=== PATIENT | male | born 1950 | race Caucasian/White ===

== ENCOUNTER 2023-10-01 02:10 | Emergency (ER) | payer OTHER, SELFPAY ==
[2023-10-01 02:13] VITALS: BP 148/82; BMI 26.9
[2023-10-01 02:28] LABS: % Basophils 0.5 % (0-2); % Immature Granulocytes 0.6 % (0-0.5); % Monocytes 9.1 % (1.7-9.3); % Neutrophils 75.8 % (42.2-75.2); Absolute Basophils 0.1 10^3/uL (0-0.2); Absolute Eosinophils 0.2 10^3/uL (0-0.7); Absolute Immature Granulocytes 0.1 10^3/uL (0-0.05); Absolute Lymphocytes 1.4 10^3/uL (1.2-3.4); Absolute Monocytes 1.1 10^3/uL (0.1-0.6); Absolute Neutrophils 8.9 10^3/uL (1.4-6.5); Hematocrit 39.3 % (39.0-52.0); Hemoglobin 13.8 g/dL (13.0-18.0); Mean Corp Hgb Conc. 35.1 g/dL (33.0-37.0); Mean Corpuscular Volume 85.4 fL (80.0-94.0); Mean Platelet Volume 9.2 fL (7.4-10.4); Nucleated Red Blood Cells % 0 % (-); Platelet Count 266 10^3/uL (130-400); Red Cell Dist. Width 13.9 % (11.5-14.5); White Blood Cell Count 11.7 10^3/uL (4.8-10.8)
--- NOTE | 2023-10-01 02:34 | ED.GENMED ---
History of Present Illness
<ESTEFANIA Wilson - Last Filed: 10/01/23 05:06>
General
Chief Complaint: Abdominal Pain
Source: patient
Time Seen by Provider: 10/01/23 02:12
History of Present Illness
History of Present Illness:
Pt is a 72 y/o male with PMHx of prothrombin gene mutation, DVT, villous adenoma, IBS, and DM presenting with abdominal pain x3.5 hours. He states the pain started while laying in bed. He states it is located all across the upper abdomen. He states
it was a constant 9/10 that is now 6/10. He states he did eat more than usual tonight at a alliance party. Patient also states he is having chest tightness that started with the abdominal pain tonight. He states it feels like pressure across his chest that
does not radiate. He states it is occurring all the time. He states he is also experiencing SOB that also started with the abdominal pain. He states he was fatigued just trying to sit up in bed and he feels like it is difficult to get air in. He
also admits to right calf cramping when he was in bed that has not resolved. He also admits to a headache that started with the abdominal pain. He states it is a 5/10 in his temples. Patient states he drinks 5 ounces of 80 proof liquor nighty and
admits to occasional marijuana use. He denies any fever, chills, diaphoresis, back pain, vomiting, or edema.
Phy Exam
<Grady Mcnair [facility] - Last Filed: 10/01/23 05:06>
Physical Exam
Physical Exam:
GENERAL: Alert , uncomfortable, in mild distress
EYE: pupils equal and reactive
Throat: Airway intact, no exudates
NECK: Supple, no significant adenopathy.
CARDIAC: Regular rate and rhythm .
LUNGS: Clear breath sounds bilaterally, no acute respiratory distress, no wheezes/rales/rhonchi
ABDOMEN: Tenderness with palpation to the upper abdomen worse in the epigastric region. Soft, nondistended, no cvat
NEUROLOGICAL: Alert and oriented x3, following commands, no focal neuro deficits.
SKIN: Warm and dry, skin intact.
MUSCULOSKELETAL: No edema, well perfused. No calf tenderness. 2+ dorsalis pedis pulses b/l.
PSYCH: Normal and appropriate interaction.
Course
<Grady Mcnair [facility] - Last Filed: 10/01/23 05:06>
Orders/Labs/Results
Orders:
Orders
10/01/23 02:12
Electrocardiogram (*1) Urgent
Reason for Study: Abdominal Pain
EKG- Treatment ONCE
IV Insert/Care/Rem.- Treatment PRN
10/01/23 02:18
Complete Blood Count/With Diff Urgent
Comprehensive Metabolic Panel Urgent
Lipase Urgent
Troponin I Urgent
10/01/23 02:52
CT Pe/abd/pel W Urgent
Comment: incorrect order by attending 'could not find correct order'
Reason For Exam: cp (hx of clotting), abd pain
10/01/23 04:57
Electrocardiogram (*1) Urgent
Reason for Study: Chest Pain
EKG- Treatment ONCE
10/01/23 04:59
Troponin I Urgent
10/01/23 05:34
US Abdomen Complete/Upper Urgent
Comment:
Reason For Exam: gallstone
Abnormal Lab Results
10/01/23
02:18
WBC 11.7 H 10^3/uL
(4.8-10.8)
RBC 4.60 L 10^6/uL
(4.70-6.10)
Abs Immat Gran (auto) 0.1 H 10^3/uL
(0-0.05)
Absolute Neuts (auto) 8.9 H 10^3/uL
(1.4-6.5)
Absolute Monos (auto) 1.1 H 10^3/uL
(0.1-0.6)
Immature Gran % 0.6 H %
(0-0.5)
Neutrophils % 75.8 H %
(42.2-75.2)
Lymphocytes % 12.0 L %
(20.5-51.1)
BUN 24 H mg/dl
(9-20)
10/01/23 02:18
10/01/23 02:18
Vital Signs
Initial and Last Documented VS:
Initial Vital Signs
Temp Pulse Resp BP Pulse Ox
98.7 F 68 19 148/82 97
10/01/23 02:13 10/01/23 02:13 10/01/23 02:13 10/01/23 02:13 10/01/23 02:13
Last Documented Vital Signs
Temp Pulse Resp BP Pulse Ox
98.7 F 62 15 137/83 97
10/01/23 02:13 10/01/23 07:00 10/01/23 07:00 10/01/23 07:00 10/01/23 07:00
<Bismark Fong, - Last Filed: 10/01/23 07:08>
Orders/Labs/Results
Orders:
Orders
10/01/23 02:12
Electrocardiogram (*1) Urgent
Reason for Study: Abdominal Pain
EKG- Treatment ONCE
IV Insert/Care/Rem.- Treatment PRN
10/01/23 02:18
Complete Blood Count/With Diff Urgent
Comprehensive Metabolic Panel Urgent
Lipase Urgent
Troponin I Urgent
10/01/23 02:52
CT Pe/abd/pel W Urgent
Comment: incorrect order by attending 'could not find correct order'
Reason For Exam: cp (hx of clotting), abd pain
10/01/23 04:57
Electrocardiogram (*1) Urgent
Reason for Study: Chest Pain
EKG- Treatment ONCE
10/01/23 04:59
Troponin I Urgent
10/01/23 05:34
US Abdomen Complete/Upper Urgent
Comment:
Reason For Exam: gallstone
Abnormal Lab Results
10/01/23
02:18
WBC 11.7 H 10^3/uL
(4.8-10.8)
RBC 4.60 L 10^6/uL
(4.70-6.10)
Abs Immat Gran (auto) 0.1 H 10^3/uL
(0-0.05)
Absolute Neuts (auto) 8.9 H 10^3/uL
(1.4-6.5)
Absolute Monos (auto) 1.1 H 10^3/uL
(0.1-0.6)
Immature Gran % 0.6 H %
(0-0.5)
Neutrophils % 75.8 H %
(42.2-75.2)
Lymphocytes % 12.0 L %
(20.5-51.1)
BUN 24 H mg/dl
(9-20)
10/01/23 02:18
10/01/23 02:18
Vital Signs
Initial and Last Documented VS:
Initial Vital Signs
Temp Pulse Resp BP Pulse Ox
98.7 F 68 19 148/82 97
10/01/23 02:13 10/01/23 02:13 10/01/23 02:13 10/01/23 02:13 10/01/23 02:13
Last Documented Vital Signs
Temp Pulse Resp BP Pulse Ox
98.7 F 62 15 137/83 97
10/01/23 02:13 10/01/23 07:00 10/01/23 07:00 10/01/23 07:00 10/01/23 07:00
<ESTEFANIA Wilson Last Filed: 10/01/23 05:06>
MDM/Problems Addressed
Differential Diagnosis Includes:
PE, ND, pancreatitis
<ESTEFANIA Wilson - Last Filed: 10/01/23 05:06>
*Pulse Oximetry
Patient hypoxic: no
*EKG
Interpreted by ED Provider?: Yes
EKG Intrepretation Date: 10/01/23
EKG Intrepretation Time: 02:17
Interpretation: abnormal
Comparison EKG: no comparison EKG present
Heart Rate: 70
Rate: normal
Rhythm: sinus
[place]: normal axis
Interval: normal interval
QRS Pattern: right bundle branch block (Incomplete)
Ischemia: no ischemia
*Licensed Veterinary Technician Interpretation
Rate: Licensed Veterinary Technician- N/A
*Critical Care Note
Total Time (30-74mins, 75-104mins- exclusive of procedures): Not Applicable
<ESTEFANIA Wilson - Last Filed: 10/01/23 05:06>
Update Note
Update Note:
10/01/2023 0500am: Patient states his abdominal pain, chest pain, and SOB have all improved.
<Bismark Fong DO - Last Filed: 10/01/23 07:08>
Update Note
Update Note:
10/01/2023 0500am: Patient states his abdominal pain, chest pain, and SOB have all improved.
10/01/2023 0546 AM: Back in to see the patient. Discussed CAT scan findings. Patient is anxious to leave as he has a son's wedding today.
ED Attending Note
<ESTEFANIA Wilson - Last Filed: 10/01/23 05:06>
-
Portions of this chart may have been created with voice recognition software.� Occasional wrong word or��sound alike� substitutions may have occurred due to the inherent limitations of voice recognition software.
<Bismark Fong, DO - Last Filed: 10/01/23 07:08>
ED Attending Note
Patient seen and examined by attending physician: Yes
I performed the substantive portion of visit, reviewed & personally made and approve the management plan that is documented in note by myself or STARR.: Yes
ED Attending Note:
72-year-old male in town for his son's wedding presents with abdominal pain and substernal nonradiating chest pain that began approximately 11:30 PM last evening. Patient states that he is has nausea without vomiting. She is history of irritable
bowel syndrome. Patient also admits to drinking alcohol every evening. Patient has had 2 stents in the past. He also states that he has had multiple bowel surgeries. Patient states that he also developed right calf cramping. Patient has a
history of clotting disorder and is on a DOAC. Patient drinks alcohol daily and does report occasional marijuana use. Patient was seen in conjunction with the PA student. I have reviewed and agree with the history and treatment plan presented.
On my independent physical exam, patient is awake, alert, and oriented x3 minimal acute distress. Heart is regular rate and rhythm. Lungs are clear to auscultation bilaterally without wheezes rales or rhonchi present. Abdomen is generally tender
in the upper quadrants. Good bowel sounds x 4 quadrants.
EKG shows sinus rhythm rate 70 with normal intervals, normal axis. No evidence of acute ischemia present. There are inverted T waves in the high lateral leads. No old EKG available for comparison.
Discussed CT scan with patient and . At this point he wishes to be discharged home to go to his son's wedding. He will be staying approximately 15 minutes away from the hospital. I did discuss signs and symptoms of cholecystitis and
pancreatitis with him. He does understand that it is risky to be discharged. I feel that he has good understanding of the risks and he will return to the ER as needed. He understands that he can go to any Medical Center. I will give him the name
of the surgeon I spoke with who is on-call.
Discharge Plan
Departure
Patient Disposition: Home (Routine Discharge)
Date of Disposition: 10/01/23
Time of Disposition: 07:05
Patient with high blood pressure during this ER visit?: Yes
Discharge Problem:
Impacted gallstone of gallbladder
Instructions: Abdominal Pain, Clear Liquid Diet, Gallstones
Prescriptions:
No Action
venlafaxine 150 mg Capsule,Extended Release 24hr
150 mg PO DAILY
venlafaxine 37.5 mg Tablet
37.5 mg PO DAILY
hydroxyzine HCl 25 mg Tablet
25 mg PO HS
Linzess 145 mcg Capsule
145 mcg PO DAILY
Linzess 72 mcg Capsule
72 mcg PO DAILY
atorvastatin 40 mg Tablet
40 mg PO DAILY
alprazolam 0.5 mg Tablet
0.5 mg PO DAILY
pantoprazole 40 mg Tablet,Delayed Release (Dr/Ec)
40 mg PO DAILY
buspirone 10 mg Tablet
10 mg PO BID
metformin 500 mg Tablet Extended Release 24 Hr
500 mg PO BID
valsartan 40 mg Tablet
40 mg PO DAILY
Xarelto 20 mg Tablet
20 mg PO DAILY
Referrals:
NONE,* [Family Provider] -
Nikolai Anderson MD [Active] - Next open appointment
Activity Restrictions/Additional Instructions:
It was a pleasure meeting you and taking part in your care. We hope for your continued healing and wellness.
Please read discharge instructions in their entirety. However, they are for general education and may not describe your exact diagnosis at discharge. Information on your ER visit and medical conditions were discussed with you along with appropriate
follow up information...
If indicated, please take your medications as instructed and indicated on discharge paperwork.
Please schedule a follow up appointment as directed. Call to schedule an appointment
Please return to the emergency department with ANY change in, persisting, or worsening of symptoms. If any of your symptoms do not improve, or persist, or become more severe within 6-12 hours, please return to the emergency department for further
care.
Please return to the emergency department if you develop a headache, neck pain/stiffness, fever greater than 100.4F, chest pain, shortness of breath, persistent nausea, vomiting, slurred speech, difficulty walking, numbness/tingling, weakness, signs
of infection or any other symptoms that are worrisome to you.
If you have any questions or concerns please do not hesitate to call the Hospital at or E-mail me directly at [email or web address]
Interventions
Interventions:
*Risk Screen - Suicide Last Done: 10/01/23 02:13
*General Assessment Last Done: 10/01/23 02:13
*Neglect/Abuse Screening Last Done: 10/01/23 02:13
*ED COVID-19 Vaccine History Last Done: 10/01/23 02:13
SY-Tgreos-Fpozsiog[facility] Assessment Last Done: 10/01/23 02:21
Discharge Date and Time
Print Language: WELSH
[2023-10-01 02:51] LABS: ALT (SGPT) 34 U/L (0-50); AST (SGOT) 36 U/L (17-59); Alkaline Phosphatase 69 U/L (38-126); Blood Urea Nitrogen 24 mg/dl (9-20); Calcium 9.9 mg/dl (8.4-10.2); Carbon Dioxide 25 mmol/L (22-30); Chloride 101 mmol/L (98-107); Estimated Creatinine Clearance 70 ml/min; Glucose 86 mg/dl (70-99); Lipase 114 U/L (23-300); Potassium 4.6 mmol/L (3.5-5.1); Sodium 137 mmol/L (135-145); Total Protein 7.7 g/dl (6.3-8.2); eGFR > 60.00
[2023-10-01 03:00] VITALS: BP 133/76
[2023-10-01 04:00] VITALS: BP 132/76
[2023-10-01 05:03] VITALS: BP 139/83
[2023-10-01 05:41] LABS: Troponin I < 0.012 ng/ml
[2023-10-01 06:38] VITALS: BP 131/72
[2023-10-01 07:00] VITALS: BP 137/83
== END 2023-10-01 07:31 | disposition home or self-care (01) ==
LOC: EMR 02:10
PROVIDERS: EMERGENCY PHYSICIAN Student in an Organized Health Care Education/Training Program
DX: K80.20 Calculus of gallbladder without cholecystitis without obstruction (principal); R03.0 Elevated blood-pressure reading, without diagnosis of hypertension
CPT/HCPCS: 99285; 71275; 74177; 76700; 80053; 83690; 84484; 85025; 93005; Q9967

== ENCOUNTER 2023-10-02 02:26 | Inpatient (IN) | payer OTHER, SELFPAY ==
[2023-10-02 00:57] VITALS: BP 125/80
[2023-10-02 01:10] VITALS: BMI 25.9
--- NOTE | 2023-10-02 01:28 | ED.GENMED ---
History of Present Illness
General
Chief Complaint: Abdominal Pain
Time Seen by Provider: 10/02/23 01:04
History of Present Illness
History of Present Illness:
Patient is a 72-year-old male with history of hypertension, hyperlipidemia, IBS, prior colorectal surgery for cancer and prior ileostomy presented to the emergency department abdominal pain. Patient states that he was seen here yesterday after he
has significant right upper quadrant pain. He was found to have a large stone in the gallbladder neck. Unfortunately his son was getting so he had to leave. He is back here as the plan was for surgical removal. He is having pain. He was
able to tolerate some p.o. though significant pain after eating candy. No fevers or chills. No vomiting. No diarrhea.
Phy Exam
Physical Exam
Physical Exam:
GENERAL: in no acute distress
HEENT: normocephalic, extraocular movements intact, moist oral mucosa
NECK: normal inspection
RESPIRATORY: no respiratory distress, clear to auscultation bilaterally
CARDIOVASCULAR: regular rate and rhythm
ABDOMEN/: soft, non-distended, right upper quadrant tenderness to palpation no rebound or guarding
EXTREMITIES: non-tender, no edema/swelling
NEUROLOGIC: awake and alert, moves all extremities
SKIN: warm
Course
Orders/Labs/Results
Orders:
Orders
10/02/23 01:26
Complete Blood Count/With Diff Urgent
Comprehensive Metabolic Panel Urgent
Vital Signs
Initial and Last Documented VS:
Initial Vital Signs
Temp Pulse Resp BP Pulse Ox
98.0 F 63 16 125/80 95
10/02/23 00:57 10/02/23 00:57 10/02/23 00:57 10/02/23 00:57 10/02/23 00:57
Last Documented Vital Signs
Temp Pulse Resp BP Pulse Ox
98.0 F 63 16 125/80 95
10/02/23 00:57 10/02/23 00:57 10/02/23 00:57 10/02/23 00:57 10/02/23 00:57
MDM/Problems Addressed
Differential Diagnosis Includes:
Patient is a 72-year-old man with prior history of IBS, hypertension, hyperlipidemia, prior surgeries presenting to the emergency department with abdominal pain in the setting of a known gallbladder stone in the neck. Vital signs are unremarkable
and exam does show right upper quadrant tenderness. Likely pain from the known stone. He does not appear to be jaundice or high fevers so less likely be cholangitis. Discussed with on-call surgery who recommended medicine admission. Blood work
pending. No additional need for repeat ultrasound. Discussed with hospitalist who accepted patient for admission
*Critical Care Note
Total Time (30-74mins, 75-104mins- exclusive of procedures): Not Applicable
ED Attending Note
-
Portions of this chart may have been created with voice recognition software.� Occasional wrong word or��sound alike� substitutions may have occurred due to the inherent limitations of voice recognition software.
Discharge Plan
Departure
Patient Disposition: Admit
Date of Disposition: 10/02/23
Time of Disposition: 01:32
Presentation/result/management discussed w/ accepting MD/DO: Hospitalist
Discharge Problem:
Gallbladder calculus
Prescriptions:
No Action
venlafaxine 150 mg Capsule,Extended Release 24hr
150 mg PO DAILY
Patient Comments:
take with 37.5mg
venlafaxine 37.5 mg Tablet
37.5 mg PO DAILY
Patient Comments:
take with 150mg
hydroxyzine HCl 25 mg Tablet
25 mg PO DAILYPRN PRN (Reason: allergies)
Linzess 145 mcg Capsule
145 mcg PO DAILYPRN PRN (Reason: constipation)
Linzess 72 mcg Capsule
72 mcg PO DAILYPRN PRN (Reason: constipation)
atorvastatin 40 mg Tablet
40 mg PO DAILY
alprazolam 0.5 mg Tablet
0.5 mg PO TIDPRN PRN (Reason: anxiety)
pantoprazole 40 mg Tablet,Delayed Release (Dr/Ec)
40 mg PO DAILY
buspirone 10 mg Tablet
10 mg PO BID
valsartan 40 mg Tablet
40 mg PO DAILY
Xarelto 20 mg Tablet
20 mg PO DAILY
metformin 1,000 mg Tablet
1,000 mg PO BID
simethicone [Gas-X Extra Strength] 125 mg Capsule
125 mg PO BIDPRN PRN (Reason: gas)
IBgard 90 mg Capsule,Delayed,Extend.Release
180 mg PO BID
Interventions
Interventions:
*Risk Screen - Suicide Last Done: 10/02/23 00:57
*General Assessment Last Done: 10/02/23 01:10
*Neglect/Abuse Screening Last Done: 10/02/23 00:57
*ED COVID-19 Vaccine History Last Done: 10/02/23 00:57
Discharge Date and Time
Print Language: TAJIK
[2023-10-02 01:45] LABS: % Basophils 0.3 % (0-2); % Eosinophils 2.2 % (0-6); % Immature Granulocytes 0.3 % (0-0.5); % Neutrophils 51.2 % (42.2-75.2); Absolute Eosinophils 0.2 10^3/uL (0-0.7); Absolute Lymphocytes 2.3 10^3/uL (1.2-3.4); Absolute Monocytes 0.9 10^3/uL (0.1-0.6); Absolute Neutrophils 3.5 10^3/uL (1.4-6.5); Hematocrit 33.3 % (39.0-52.0); Hemoglobin 11.6 g/dL (13.0-18.0); Mean Corp Hgb Conc. 34.8 g/dL (33.0-37.0); Mean Corpuscular Hgb 29.6 pg (27.0-31.0); Mean Corpuscular Volume 84.9 fL (80.0-94.0); Mean Platelet Volume 9.2 fL (7.4-10.4); Nucleated Red Blood Cells % 0 % (-); Platelet Count 230 10^3/uL (130-400); Red Blood Cell Count 3.92 10^6/uL (4.70-6.10); Red Cell Dist. Width 14.1 % (11.5-14.5); White Blood Cell Count 6.9 10^3/uL (4.8-10.8)
--- NOTE | 2023-10-02 01:57 | HPS.HSE ---
Family Physician
-
Family Physician: INTERVIEWE UNKNOWN - PT NOT
Chief Complaint
-
abdominal pain
History of Present Illness
72M Diabetic , HX HTN, IBS, prior colorectal surgery for cancer and prior ileostomy was seen at ER yesterday withsignificant right upper quadrant pain [place] [facility] [place] Refused admission due to Pending Son's weeding.
Retuned to ER tonight with significant right upper quadrant pain.
ROS
- tolerate some p.o. though significant pain after eating candy.
- no fevers or chills. No vomiting. No diarrhea.
Medical History
Past Medical History
Past Medical History: Reports HTN, Hypercholesterolemia, NIDDM and Psychiatric (depression and anxiety )
Past Surgical History: Reports Other
Social History
Tobacco: Non-smoker
Alcohol: None
Drug: None
Family History
Family History: Not pertinent
Allergies / Home Medications
Allergies reflects when Allergies were last updated in [employer].
Home Medications with original date entered in [employer]
Allergy/Medication List:
Allergies
Allergy/AdvReac Type Severity Reaction Status Date / Time
No Known Allergies Allergy Unverified 10/02/23 00:57
Home Medications
alprazolam 0.5 mg tablet 0.5 mg PO TIDPRN PRN anxiety 10/01/23
atorvastatin 40 mg tablet 40 mg PO DAILY 10/01/23
buspirone 10 mg tablet 10 mg PO BID 10/01/23
hydroxyzine HCl 25 mg tablet 25 mg PO DAILYPRN PRN allergies 10/01/23
linaclotide 145 mcg capsule (Linzess) 145 mcg PO DAILYPRN PRN constipation 10/01/23
linaclotide 72 mcg capsule (Linzess) 72 mcg PO DAILYPRN PRN constipation 10/01/23
pantoprazole 40 mg tablet,delayed release 40 mg PO DAILY 10/01/23
rivaroxaban 20 mg tablet (Xarelto) 20 mg PO DAILY 10/01/23
valsartan 40 mg tablet 40 mg PO DAILY 10/01/23
venlafaxine 150 mg capsule,extended release 24 hr 150 mg PO DAILY 10/01/23
venlafaxine 37.5 mg tablet 37.5 mg PO DAILY 10/01/23
metformin 1,000 mg tablet 1,000 mg PO BID 10/02/23
peppermint oil 90 mg capsule,delayed,extended release (IBgard) 180 mg PO BID 10/02/23
simethicone 125 mg capsule (Gas-X Extra Strength) 125 mg PO BIDPRN PRN gas 10/02/23
Review of Systems
-
Constitutional: Reports No Symptoms
EENT: Reports No Symptoms
Respiratory: Reports No Symptoms
Cardiac: Reports No Symptoms
Abdomen/GI: Reports Abdominal Pain
: Reports No Symptoms
Musculoskeletal: Reports No Symptoms
Skin: Reports No Symptoms
Neurological: Reports No Symptoms
Endocrine: Reports No Symptoms
Hematologic/Lymphatic: Reports No Symptoms
Psych: Reports No Symptoms
Physical Exam
Vital Signs
Vital Signs
Temp Pulse Resp BP Pulse Ox
98.0 F 63 16 125/80 95
10/02/23 00:57 10/02/23 00:57 10/02/23 00:57 10/02/23 00:57 10/02/23 00:57
Physical Exam
General: Well Developed, Well Nourished and No Apparent Distress
HEENT: NormoCephalic, Moist mucous membranes and Atraumatic
Respiratory: Clear
Cardiac: S1/S2 and Regular Rhythm; No Murmur or Rub
GI: Soft, Non Distended, Normal Bowel Sounds and Tender ( right upper quadrant tenderness to palpation); No Organomegaly
Rectal: Deferred by Provider
Musculoskeletal: No Clubbing, No Cyanosis and No Edema
Skin: No Rash
Neuro: Nonfocal/grossly intact
Psych: Calm
Laboratory Results
-
10/02/23 01:35
Data Reviewed
-
CT Scan: Report Reviewed by me
Ultrasound: Report Reviewed by me
Lab Data: Labs Reviewed by me
Old Records: Reviewed
Impression/Plan
-
Reviewed VS: Afebrile and unremarkable
Data
WCC 6.9 was 11.7 on 10/01
Hgb 11.6
Cr 1.0
10/01/23 US Abdomen Complete/Upper
1. 1.2 cm IMPACTED GALLSTONE in the neck of the gallbladder.
2. No sonographic evidence for acute cholecystitis or biliary obstruction.
3. Mild to moderate diffuse hepatic steatosis.
4. Mild chronic bilateral renal disease.
10/01/23 CT Pe/abd/pel W
1. Limited evaluation of the chest secondary to respiratory motion artifact. Within these limits, no gross evidence for pulmonary embolism. No focal airspace disease. Small amount of scarring/atelectasis within both posterior upper lobes.
2. Patulous esophagus with small fluid-filled hiatal hernia suggestive of reflux.
3. Moderate to large amount of flow within the proximal mid colon with several air-fluid levels suggestive of acute or ulna/gastroenteritis.
4. Cholelithiasis.
5. Additional findings above.
NO PRIOR hospitalist admission:
ASSESSMENT & PLAN
Biliary colic 2/2 1.2 cm IMPACTED GALLSTONE in the neck of the gallbladder.
No sonographic evidence for acute cholecystitis or biliary obstruction asof 09/30
nl LFTs on 09/30
- No nausea and vomiting
- Normalized WCC today
- Hold Xarelto - last dose was 09/30 around 8am
- NPO except Meds and IVF
- PRN analgesia
- Hold off ABx for now
- GS consulted
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
- Hold Xarelto - last dose was 09/30 around 8am
DMT2
- hold metformin
- add ISS low
Essential HTN
- hold Valsartan
HLD
- Hold Statin
Depression and Anxiety
- cont all OP Meds
DVT Px: SCD
Code: Full
IP MS
[2023-10-02 02:01] LABS: ALT (SGPT) 25 U/L (0-50); AST (SGOT) 28 U/L (17-59); Albumin 4.1 g/dl (3.5-5.0); Alkaline Phosphatase 55 U/L (38-126); Blood Urea Nitrogen 26 mg/dl (9-20); Calcium 9.3 mg/dl (8.4-10.2); Carbon Dioxide 23 mmol/L (22-30); Chloride 106 mmol/L (98-107); Estimated Creatinine Clearance 64 ml/min; Glucose 118 mg/dl (70-99); Potassium 4.2 mmol/L (3.5-5.1); Sodium 135 mmol/L (135-145); Total Bilirubin 1.3 mg/dl (0.2-1.3); Total Protein 6.6 g/dl (6.3-8.2); eGFR > 60.00
[2023-10-02 02:55] VITALS: BP 118/71
[2023-10-02 03:28] VITALS: BP 130/58; BMI 25.3
[2023-10-02] MEDS: NSS 1000 IV ×2 (03:47→15:58)
[2023-10-02] MEDS: ANESTHETIC LOZENGE 1 LOZENGE PO (03:59)
[2023-10-02 06:00] VITALS: BMI 25.3
[2023-10-02 06:14] LABS: Glucose - Point of Care 124 mg/dl (70-99)
--- NOTE | 2023-10-02 07:32 | W.PN.HOSP.TC ---
Addendum entered and electronically signed by Gibson Dowd MD 10/02/23 18:17:
Start IV heparin drip for hypercoagulable state.
Original Note:
Today's Communication/Plan
-
See bold
Assessment / Plan
Assessment / Plan
HPI: 72-year-old male with history of hypertension, hyperlipidemia, IBS, prior colorectal surgery for cancer and prior ileostomy presented to the emergency department abdominal pain. Patient states that he was seen here yesterday after he has
significant right upper quadrant pain. He was found to have a large stone in the gallbladder neck. Unfortunately his son was getting so he had to leave. He is back here as the plan was for surgical removal. He is having pain. He was
able to tolerate some p.o. though significant pain after eating candy. No fevers or chills. No vomiting. No diarrhea.
#Biliary colic
#Choledocholithiasis
Abdominal ultrasound shows 1.2 cm impacted gallstone in the neck of the gallbladder
General Surgery consulted
Continue n.p.o., IV fluids, pain meds
Hold Xarelto, last dose 09/30
#History of clotting disorders complicated by CVA
Hold Xarelto, continue statin
#Type 2 diabetes
Hold metformin, continue sliding scale insulin
#Allergic rhinitis
Continue antihistamine
#Benign essential hypertension
Hold valsartan for now, monitor blood pressure
#Allergic rhinitis
Zyrtec, hydroxyzine
#Anxiety/depression
Continue venlafaxine, Xanax as needed
DVT prophylaxis�subcu Lovenox
Full code
Physical Exam
General: No acute distress
HEENT: Normocephalic, Atraumatic, EOMI, MMM
Respiratory: Clear to Auscultation bilaterally
Cardiac: Normal S1/S2, Regular Rate and Rhythm
GI: Soft, tenderness in right upper quadrant and epigastric, Nondistended, Normal Bowel Sounds
Extremities: No Clubbing, Cyanosis, or Edema
Neuro: Nonfocal/Grossly Intact
Psych: Calm, Cooperative
Derm: No Visible lesions
Anticipated Discharge: > 48 hours
Subjective/Interval History
-
Date of Service: October 02, 2023
Objective Data
-
Labs:
Laboratory Results
10/02/23 10/02/23
01:35 06:28
WBC 6.9
Hgb 11.6 L
Hct 33.3 L
Plt Count 230
PT Pending
INR Pending
Sodium 135
Potassium 4.2
Chloride 106
Carbon Dioxide 23
BUN 26 H
Creatinine 1.1
Glucose 118 H
Calcium 9.3
Total Bilirubin 1.3
AST 28
ALT 25
Alkaline Phosphatase 55
Vital Signs:
Vital Signs
Temp Pulse Resp BP Pulse Ox
97.5 F 65 17 130/58 94
10/02/23 03:28 10/02/23 03:28 10/02/23 03:28 10/02/23 03:28 10/02/23 03:28
[2023-10-02 07:33] VITALS: BP 141/74
[2023-10-02 07:54] LABS: Lipase 57 U/L (23-300)
[2023-10-02] MEDS: EFFEXOR 37.5 MG PO (08:09)
[2023-10-02] MEDS: BUSPAR 10 MG PO ×2 (08:09→20:19)
[2023-10-02] MEDS: EFFEXOR XR 150 MG PO (08:10)
[2023-10-02 09:15] LABS: Glycohemoglobin (HgbA1c) 7.1 % (4.0-5.6)
[2023-10-02 09:32] LABS: PT 15.1 Sec (11.4-14.6)
[2023-10-02 12:02] LABS: Glucose - Point of Care 82 mg/dl (70-99)
[2023-10-02] MEDS: XANAX 0.5 MG PO ×2 (13:32→20:19)
[2023-10-02] MEDS: ATARAX 25 MG PO (14:23)
[2023-10-02] MEDS: ZYRTEC 10 MG PO (14:24)
[2023-10-02 15:21] VITALS: BP 145/75
--- NOTE | 2023-10-02 15:44 | CM ---
Met with pt and his a bedside
Pt reports he lives with his in a 2 story home - 2 steps to enter, 15 steps to 2nd fl
Independent, driving, active
DME - glucometer
SNF - denies past hx
HH - in past - unsure of agency
Has ride home at d/c
PCP - Dr Hall
Pharm - [facility]
CM will follow for d/c needs
Plan - anticipate home no needs
[2023-10-02] MEDS: LIPITOR 40 MG PO (15:58)
[2023-10-02] MEDS: PROTONIX 40 MG PO (15:58)
--- NOTE | 2023-10-02 16:46 | CON.GS ---
Medical History
-
Chief Complaint: abdominal pain
History of Present Illness:
Mr. Story is a 72 yo male with a history of colorectal cancer with prior ileostomy and subsequent reversal in 2009, incisional hernia repair with mesh at ostomy site and clotting disorder with prior CVA/PE/DVT now on Xarelto chronically LD on
09/30 presenting with recurrent RUQ pain. He does note chronic RLQ pain at prior surgical site which is stable. He initially presented through the ED on 09/30 with US imaging noting a stone impacted at the gallbladder neck. His son was getting
later that day and he opted to be discharged and follow up as an outpatient. He notes that he did well at the wedding but pain returned later that evening and he presented again through the ED for evaluation. He has noted tenderness to the RUQ but
pain is not severe. He denies nausea or vomiting. He has been passing flatus.
Past Medical History
Past Medical History: CVA and Other (Clotting disorder with h/o PE/DVT/CVA)
Past Surgical History: Bowel Resection (Hemicolectomy with temporary ileostomy which was subsequently taken down 2009) and Hernia Repair (Incisional hernia repair with mesh at prior ostomy site )
Social History
Tobacco: Non-Smoker
Personal:
Living: With Family
Family History
Family History: Reviewed & Not Pertinent
Allergies / Home Medications
Allergy/AdvReac Type Severity Reaction Status Date / Time
No Known Allergies Allergy Unverified 10/02/23 00:57
�Medication �Instructions �Recorded �Confirmed �Type
alprazolam 0.5 mg tablet 0.5 mg PO TIDPRN PRN anxiety 10/01/23 10/02/23 History
atorvastatin 40 mg tablet 40 mg PO DAILY 10/01/23 10/02/23 History
buspirone 10 mg tablet 10 mg PO BID 10/01/23 10/02/23 History
hydroxyzine HCl 25 mg tablet 25 mg PO DAILYPRN PRN allergies 10/01/23 10/02/23 History
linaclotide 145 mcg capsule 145 mcg PO DAILYPRN PRN 10/01/23 10/02/23 History
(Linzess) constipation
linaclotide 72 mcg capsule 72 mcg PO DAILYPRN PRN constipation 10/01/23 10/02/23 History
(Linzess)
pantoprazole 40 mg tablet,delayed 40 mg PO DAILY 10/01/23 10/02/23 History
release
rivaroxaban 20 mg tablet (Xarelto) 20 mg PO DAILY 10/01/23 10/02/23 History
valsartan 40 mg tablet 40 mg PO DAILY 10/01/23 10/02/23 History
venlafaxine 150 mg 150 mg PO DAILY 10/01/23 10/02/23 History
capsule,extended release 24 hr
venlafaxine 37.5 mg tablet 37.5 mg PO DAILY 10/01/23 10/02/23 History
metformin 1,000 mg tablet 1,000 mg PO BID 10/02/23 10/02/23 History
peppermint oil 90 mg 180 mg PO BID 10/02/23 10/02/23 History
capsule,delayed,extended release
(IBgard)
simethicone 125 mg capsule (Gas-X 125 mg PO BIDPRN PRN gas 10/02/23 10/02/23 History
Extra Strength)
Review of Systems
-
History Source: Patient and Family
All other systems: Negative unless noted
A 10 point review of systems was completed, and was negative except as per HPI.
Physical Exam
Vital Signs
Temp Pulse Resp BP Pulse Ox
98 F 57 16 145/75 98
10/02/23 15:21 10/02/23 15:21 10/02/23 15:21 10/02/23 15:21 10/02/23 15:21
10/01/23 10/02/23 10/03/23
06:59 06:59 06:59
Actual Weight 80.002 kg
Body Mass Index (BMI) 25.3
Lab Results
10/02/23 01:35
10/02/23 01:35
WBC 6.9 10^3/uL (4.8-10.8) 10/02/23 01:35
Hgb 11.6 g/dL (13.0-18.0) L 10/02/23 01:35
Hct 33.3 % (39.0-52.0) L 10/02/23 01:35
Plt Count 230 10^3/uL (130-400) 10/02/23 01:35
Abs Immat Gran (auto) 0.0 10^3/uL (0-0.05) 10/02/23 01:35
Neutrophils % 51.2 % (42.2-75.2) 10/02/23 01:35
Physical Exam
General: Well Developed and Well Nourished
HEENT: Moist Mucous Membranes
Respiratory: Non Labored Respirations
GI: Soft, Non Distended and Tender (RUQ)
Skin: Warm and Dry
Neuro: Awake, Alert and AO x 3
Psych: Calm
Assessment / Plan
-
72 yo diabetic male on Xarelto for clotting disorder with prior CVA, PE and DVT (LD 8) with recurrent RUQ pain with US imaging demonstrating a stone impacted at the gallbladder neck although without pericholecystic stranding. He initially had
mild leukocytosis which has resolved. No N/V. AFVSS. LFT's OK. Biliary colic with suspected acute cholecystitis.
Discussed options with patient in depth including surgery and timing. Will plan cholecystostomy tube placement tomorrow and subsequent follow up with surgery for future cholecystectomy closer to his home in [facility].
--Hold Xarelto for procedure
--Consult IR for perc naomie drain
--OK for clear liquids tonight, NPO after MN
--Start IV zosyn empirically
--Trend labs/exams
[2023-10-02] MEDS: ZOSYN 50 IV (17:06)
[2023-10-02] MEDS: MIRALAX 17 GRAMS PO (17:13)
[2023-10-02 17:58] LABS: Glucose - Point of Care 159 mg/dl (70-99)
[2023-10-02] MEDS: HEPARIN 25000 UNITS/250 ML IV (19:16)
[2023-10-02 21:20] LABS: APTT 26.4 Sec (23.4-35.0)
[2023-10-02 23:59] VITALS: BP 130/65
[2023-10-03] MEDS: ZOSYN 50 IV ×5 (00:08→23:46)
[2023-10-03] MEDS: XANAX 0.5 MG PO ×5 (00:20→21:41)
[2023-10-03 00:42] LABS: Glucose - Point of Care 96 mg/dl (70-99)
[2023-10-03 04:41] LABS: Hemoglobin 11.2 g/dL (13.0-18.0); Mean Corp Hgb Conc. 33.9 g/dL (33.0-37.0); Mean Corpuscular Hgb 30.6 pg (27.0-31.0); Mean Corpuscular Volume 90.2 fL (80.0-94.0); Mean Platelet Volume 9.2 fL (7.4-10.4); Platelet Count 181 10^3/uL (130-400); Red Blood Cell Count 3.66 10^6/uL (4.70-6.10); Red Cell Dist. Width 13.9 % (11.5-14.5); White Blood Cell Count 5.4 10^3/uL (4.8-10.8)
[2023-10-03 04:50] LABS: APTT 28.2 Sec (23.4-35.0)
[2023-10-03 05:10] LABS: ALT (SGPT) 24 U/L (0-50); AST (SGOT) 25 U/L (17-59); Alkaline Phosphatase 45 U/L (38-126); Blood Urea Nitrogen 15 mg/dl (9-20); Calcium 7.4 mg/dl (8.4-10.2); Carbon Dioxide 20 mmol/L (22-30); Chloride 112 mmol/L (98-107); Estimated Creatinine Clearance 78 ml/min; Glucose 88 mg/dl (70-99); Potassium 3.7 mmol/L (3.5-5.1); Sodium 138 mmol/L (135-145); Total Bilirubin 1.6 mg/dl (0.2-1.3); Total Protein 5.2 g/dl (6.3-8.2); eGFR > 60.00
[2023-10-03] MEDS: NSS 1000 IV ×2 (05:24→20:23)
[2023-10-03 06:00] VITALS: BMI 24.9
[2023-10-03 06:23] LABS: Glucose - Point of Care 102 mg/dl (70-99)
[2023-10-03 07:39] VITALS: BP 141/82
[2023-10-03 07:59] LABS: % Basophils 0.6 % (0-2); % Eosinophils 3.5 % (0-6); % Immature Granulocytes 0.4 % (0-0.5); % Lymphocytes 33.5 % (20.5-51.1); % Monocytes 11.7 % (1.7-9.3); % Neutrophils 50.3 % (42.2-75.2); Absolute Eosinophils 0.2 10^3/uL (0-0.7); Absolute Lymphocytes 1.8 10^3/uL (1.2-3.4); Absolute Monocytes 0.6 10^3/uL (0.1-0.6); Absolute Neutrophils 2.7 10^3/uL (1.4-6.5); Hemoglobin 11.8 g/dL (13.0-18.0); Mean Corp Hgb Conc. 34.7 g/dL (33.0-37.0); Mean Corpuscular Hgb 30.9 pg (27.0-31.0); Mean Platelet Volume 9.8 fL (7.4-10.4); Nucleated Red Blood Cells % 0 % (-); Platelet Count 202 10^3/uL (130-400); Red Blood Cell Count 3.82 10^6/uL (4.70-6.10); Red Cell Dist. Width 13.9 % (11.5-14.5); White Blood Cell Count 5.4 10^3/uL (4.8-10.8)
[2023-10-03 08:10] LABS: APTT 26.8 Sec (23.4-35.0)
--- NOTE | 2023-10-03 08:21 | W.PN.HOSP.TC ---
Addendum entered and electronically signed by Gibson Dowd MD 10/03/23 14:43:
#Anxiety/depression
Patient is upset about being in the hospital, and is asking for an increase in his Xanax.
He is on buspirone 10 mg twice a day, venlafaxine 187.5 milligrams daily, and Xanax 0.5 mg 3 times daily as needed.
Due to his age of [age] years old, I am hesitant to increase his Xanax.
Will consult psychiatry for their recommendations.
Original Note:
Today's Communication/Plan
-
For tentative cholecystectomy tomorrow
Assessment / Plan
Assessment / Plan
HPI: 72-year-old male with history of hypertension, hyperlipidemia, IBS, prior colorectal surgery for cancer and prior ileostomy presented to the emergency department abdominal pain. Patient states that he was seen here yesterday after he has
significant right upper quadrant pain. He was found to have a large stone in the gallbladder neck. Unfortunately his son was getting so he had to leave. He is back here as the plan was for surgical removal. He is having pain. He was
able to tolerate some p.o. though significant pain after eating candy. No fevers or chills. No vomiting. No diarrhea.
#Biliary colic with suspected acute cholecystitis
#Choledocholithiasis
Abdominal ultrasound shows 1.2 cm impacted gallstone in the neck of the gallbladder
Hold Xarelto, last dose 09/30
Appreciate general surgery input, patient initially opted for biliary drain so he can be discharged from the hospital
Now he wants to have surgery inpatient
Continue IV Zosyn, for possible lap naomie tomorrow
Need to hold heparin drip 6 hours preop
#History of clotting disorders complicated by CVA
Hold Xarelto, continue heparin drip, statin
#Type 2 diabetes
A1C 7.1
Hold metformin, continue sliding scale insulin
#Allergic rhinitis
Continue antihistamine
#Benign essential hypertension
Hold valsartan for now, monitor blood pressure
#Allergic rhinitis
Zyrtec, hydroxyzine
#Anxiety/depression
Continue venlafaxine, Xanax as needed
DVT prophylaxis�heparin drip
Full code
Total time spent to see the patient on the floor, examine the patient, review data and lab results, discuss treatment plan with patient, nursing staff around 51 minutes.
Physical Exam
General: No acute distress
HEENT: Normocephalic, Atraumatic, EOMI, MMM
Respiratory: Clear to Auscultation bilaterally
Cardiac: Normal S1/S2, Regular Rate and Rhythm
GI: Soft, tenderness in right upper quadrant and epigastric, Nondistended, Normal Bowel Sounds
Extremities: No Clubbing, Cyanosis, or Edema
Neuro: Nonfocal/Grossly Intact
Psych: Calm, Cooperative
Derm: No Visible lesions
Anticipated Discharge: 24 - 48 hours
Subjective/Interval History
-
Date of Service: October 02, 2023
Abdominal pain resolved. No fever, no vomiting.
Objective Data
-
Labs:
Laboratory Results
10/02/23
06:28
PT 15.1 H
INR 1.20
Vital Signs:
Vital Signs
Temp Pulse Resp BP Pulse Ox
98 F 57 16 145/75 98
10/02/23 15:21 10/02/23 15:21 10/02/23 15:21 10/02/23 15:21 10/02/23 15:21
[2023-10-03 08:23] LABS: Blood Urea Nitrogen 17 mg/dl (9-20); Calcium 8.7 mg/dl (8.4-10.2); Carbon Dioxide 23 mmol/L (22-30); Chloride 107 mmol/L (98-107); Estimated Creatinine Clearance 70 ml/min; Glucose 98 mg/dl (70-99); Potassium 4.2 mmol/L (3.5-5.1); Sodium 136 mmol/L (135-145); eGFR > 60.00
[2023-10-03] MEDS: EFFEXOR XR 150 MG PO (08:40)
[2023-10-03] MEDS: BUSPAR 10 MG PO ×2 (08:40→20:24)
[2023-10-03] MEDS: LIPITOR 40 MG PO (08:41)
[2023-10-03] MEDS: ZYRTEC 10 MG PO (08:41)
[2023-10-03] MEDS: EFFEXOR 37.5 MG PO (08:41)
[2023-10-03] MEDS: PROTONIX 40 MG PO (08:41)
--- NOTE | 2023-10-03 09:04 | PTCARENOTE ---
at 0904, heparin ordered to be held in preparation for biliary drain placement, will continue to monitor.
--- NOTE | 2023-10-03 10:31 | W.PN.GS2 ---
Today's Communication / Plan
-
Lap naomie Wednesday
Assessment / Plan
-
72 yo diabetic male on Xarelto for clotting disorder with prior CVA, PE and DVT (LD 09/30) with recurrent RUQ pain with US imaging demonstrating a stone impacted at the gallbladder neck although without pericholecystic stranding. He initially had
mild leukocytosis which has resolved. No N/V. AFVSS. LFT's OK initially but now trending up. Biliary colic with suspected acute cholecystitis.
Reviewed plan of care and options with patient. He is now thinking he would like surgery while inpatient and not drain placement. Discussed with hospitalist and primary RN
--Xarelto on hold LD was 09/30, now on heparin gtt
--NPO after MN for tentative lap naomie with cholangiogram.
--Hold heparin 6 hours preop
--Continue Zosyn empirically
--Trend labs/exams
--Clears today, NPO after MN
Subjective Data
-
Date of Service: October 03, 2023
Patient seen and examined at bedside with his . Questions address. Has some RUQ pain. Denies n/v.
Objective Data
-
Intake and Output
10/02/23 10/03/23 10/04/23
06:59 06:59 06:59
Intake Total 420 / 420
Balance 420 / 420
Intake:
Oral fluids 420 / 420
Other:
Number of approximated MODERATE 1 2
amounts of urine
Vital Signs
Temp Pulse Resp BP Pulse Ox
97.5 F 56 16 141/82 96
10/03/23 07:39 10/03/23 07:39 10/03/23 07:39 10/03/23 07:39 10/03/23 07:39
Lab Results
10/03/23 05:58
10/03/23 05:58
Calcium 8.7 mg/dl (8.4-10.2) 10/03/23 05:58
Total Bilirubin 1.6 mg/dl (0.2-1.3) H 10/03/23 04:26
AST 25 U/L (17-59) 10/03/23 04:26
ALT 24 U/L (0-50) 10/03/23 04:26
Alkaline Phosphatase 45 U/L (38-126) 10/03/23 04:26
Total Protein 5.2 g/dl (6.3-8.2) L D 10/03/23 04:26
Albumin 3.0 g/dl (3.5-5.0) L 10/03/23 04:26
Physical Exam
-
NAD
ABD soft, tender RUQ, ND
[2023-10-03 11:40] LABS: Glucose - Point of Care 169 mg/dl (70-99)
--- NOTE | 2023-10-03 11:50 | PTCARENOTE ---
Addendum entered by Kanika Mohr RN 10/03/23 16:07:
patient verbalized to me that his decision is to have cholecystectomy tomorrow as recommended by both Dr. Bonilla and Dr. Dowd. both teams made aware and Heparin resumed at 1400units/her (14ml/hr), then will follow heparin protocol for dvt/pe, will
continue to monitor.
Original Note:
patient verbalized to me that his decision is to have cholecystectomy tomorrow as recommended by both Dr. Bonilla and Dr. Dowd. both teams made aware and Heparin resumed at 1400units/her (14ml/hr), will continue to monitor.
--- NOTE | 2023-10-03 11:52 | PTCARENOTE ---
left arm IV site infiltrated. will elevate on pillows and place warm compress. IV team called, will continue to monitor.
--- NOTE | 2023-10-03 11:53 | VATNOTE ---
Called by PCN to evaluate infiltrate to LUE and start new IV. Large infiltrate to L arm, Heparin was infusing. Heat applied to arm and arm elevated on pillow. New IV started and heparin infusion tubing changed. Will continue to monitor.
[2023-10-03 12:02] LABS: APTT 25.1 Sec (23.4-35.0)
[2023-10-03] MEDS: NOVOLOG FLEXPEN-LOW RESISTANCE 1 UNITS SC (12:49)
[2023-10-03] MEDS: HEPARIN 6400 UNITS IV (13:04)
[2023-10-03 15:50] VITALS: BP 159/88
--- NOTE | 2023-10-03 16:04 | CS.PSYCHR ---
Consult Summary - Psychiatry
-
Psychiatry consult for management of anxiety. Patient is a 72 yo male with history of severe anxiety, depression OCD and PTSD. He reports seeing his psychiatrist Dr. Slaughter for several years and is prescribed the following regimen: Effexor XR
187.5mg daily, Buspar 10mg BID and Xanax 0.5mg PRN (1-1.5mg total each day). He reports increased anxiety while in the hospital and given recent events. I spoke with his psychiatrist by phone ([phone]) who confirms the above history. He states
patient has always been reliable and consistent. He is compliant with his medications and he has no concerns for benzo misuse or med seeking behaviors. He adds that anything involving his GI tract results in considerable stress for him. His
recommendation is for short term increase of Xanax to 0.5mg QID PRN while in the hospital. He adds that he has not been able to increase effexor XR beyond current dose due to blood pressure issues.
MSE- good eye contact. fluent speech. logical and goal directed. Anxious/angry mood. congruent affect. Denies SI/HI/AVH. no delusions. Fair insight/judgement. fully oriented.
Past psych- history as noted above; has had ECT as an outpatient which he did not respond to
Family history- mother, aunt, uncle all had ECT
D&A- admits to drinking 5-6 ounces of vodka or bourbon at night. understands not to combine this with his xanax. Denies history of withdrawal. denies past treatment programs. confirmed awareness of this with Dr. Slaughter
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 . son just got . Lives in [place] with his
A/P- 72 yo male with generalized anxiety disorder, depression, OCD and PTSD. At recommendation of outpatient psychiatrist, will increase xanax PRN to 0.5mg up to 4 times a day while in the hospital. Will also continue Effexor XR and Buspar. He will
follow up with Dr. Slaughter after discharge. Psychiatry will follow up.
--- NOTE | 2023-10-03 16:11 | PTCARENOTE ---
patient with intermittent periods of extreme anxiety t/o the day, was medicated with PRN Xanax with some relief. Initially, agreeable to biliary drain, then decided that he would like cholecystectomy done with Dr. Bonilla after Dr. Dowd spoke with him.
patient said, 'Dr. Dowd pushed me into it!'. I witnessed conversation between both patient and Dr. Dowd and Dr. Dowd recommended cholecystectomy and provided benefits and risks as already explained by Dr. Bonilla this am. Up until 1145, patient waffling
back and forth between going to surgery and having biliary tube placed. Finally, patient verbalized that he wanted cholecystectomy. I explained to him if he changes his mind, IR may not be able to do biliary drain today. Heparin resumed at 1150
since patient chose to have cholecystomy tomorrow. will continue to monitor.
[2023-10-03] MEDS: HEPARIN 25000 UNITS/250 ML IV (16:46)
[2023-10-03 17:27] LABS: Glucose - Point of Care 132 mg/dl (70-99)
[2023-10-03] MEDS: NOVOLOG FLEXPEN-LOW RESISTANCE SC (17:29)
[2023-10-03] MEDS: MIRALAX 17 GRAMS PO (18:02)
[2023-10-03 20:57] LABS: APTT > 200 Sec (23.4-35.0)
[2023-10-03 21:33] LABS: Glucose - Point of Care 133 mg/dl (70-99)
[2023-10-03 22:13] LABS: APTT > 200 Sec (23.4-35.0)
[2023-10-03 23:42] VITALS: BP 154/87
[2023-10-04] VITALS (10 sets, daily range): BP systolic 135–171; BP diastolic 65–98; BMI 25.5
[2023-10-04] MEDS: ZOSYN 50 IV ×3 (05:12→23:31)
[2023-10-04 06:23] LABS: Glucose - Point of Care 131 mg/dl (70-99)
[2023-10-04] MEDS: ATARAX 25 MG PO (06:46)
[2023-10-04 07:52] LABS: Glucose - Point of Care 145 mg/dl (70-99)
[2023-10-04 08:33] LABS: Hematocrit 32.5 % (39.0-52.0); Hemoglobin 11.3 g/dL (13.0-18.0); Mean Corp Hgb Conc. 34.8 g/dL (33.0-37.0); Mean Corpuscular Hgb 30.1 pg (27.0-31.0); Mean Corpuscular Volume 86.4 fL (80.0-94.0); Mean Platelet Volume 9.1 fL (7.4-10.4); Platelet Count 207 10^3/uL (130-400); Red Blood Cell Count 3.76 10^6/uL (4.70-6.10); Red Cell Dist. Width 13.8 % (11.5-14.5); White Blood Cell Count 4.6 10^3/uL (4.8-10.8)
[2023-10-04 08:43] LABS: APTT 26.7 Sec (23.4-35.0)
[2023-10-04 09:31] LABS: ALT (SGPT) 26 U/L (0-50); AST (SGOT) 27 U/L (17-59); Albumin 3.6 g/dl (3.5-5.0); Alkaline Phosphatase 47 U/L (38-126); Blood Urea Nitrogen 12 mg/dl (9-20); Calcium 8.8 mg/dl (8.4-10.2); Carbon Dioxide 22 mmol/L (22-30); Chloride 107 mmol/L (98-107); Estimated Creatinine Clearance 64 ml/min; Glucose 125 mg/dl (70-99); Potassium 4.4 mmol/L (3.5-5.1); Sodium 137 mmol/L (135-145); Total Bilirubin 1.7 mg/dl (0.2-1.3); Total Protein 5.9 g/dl (6.3-8.2); eGFR > 60.00
[2023-10-04] MEDS: NOVOLOG FLEXPEN-LOW RESISTANCE SC ×3 (10:00→15:58)
[2023-10-04] MEDS: LIPITOR 40 MG PO (10:05)
[2023-10-04] MEDS: EFFEXOR 37.5 MG PO (10:05)
[2023-10-04] MEDS: ZYRTEC 10 MG PO ×2 (10:05→10:06)
[2023-10-04] MEDS: EFFEXOR XR 150 MG PO (10:05)
[2023-10-04] MEDS: BUSPAR 10 MG PO ×2 (10:06→19:46)
[2023-10-04] MEDS: PROTONIX 40 MG PO (10:06)
[2023-10-04] MEDS: XANAX 0.5 MG PO ×3 (10:10→23:32)
[2023-10-04] MEDS: TYLENOL 650 MG PO ×2 (10:10→17:18)
[2023-10-04] MEDS: NSS 1000 IV (10:12)
--- NOTE | 2023-10-04 10:26 | CM ---
CM following re: discharge planning.
Reviewed pt's chart. per Surgery, lap naomie with cholangiogram today.
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
D/C plan; home with anticipated no needs. Spouse t transport at discharge.
CM will follow with discharge plan updates as hospitalization progresses
--- NOTE | 2023-10-04 11:30 | W.PN.GS2 ---
Today's Communication / Plan
-
Hold heparin gtt for OR today
Assessment / Plan
-
72 yo diabetic male on Xarelto for prothrombin clotting disorder with prior CVA, PE and DVT (LD 09/30) with recurrent RUQ pain with US imaging demonstrating a stone impacted at the gallbladder neck although without pericholecystic stranding. He
initially had mild leukocytosis which has resolved. No N/V. AFVSS. LFT's OK initially but bilirubin has trended up slightly to 1.7. Biliary colic with suspected acute cholecystitis.
--Xarelto on hold LD was 09/30. Heparin bridge held as of 5am this morning
--NPO for lap naomie with cholangiogram today
--Continue Zosyn empirically
Subjective Data
-
Date of Service: October 04, 2023
Patient seen and examined at bedside. Denies n/v. Pain to the epigastric area and right upper quadrant which is not severe. Some chronic intermittent lower right abdominal pain. +BM/Flatus today.
Objective Data
-
Intake and Output
10/03/23 10/04/23 10/05/23
06:59 06:59 06:59
Intake Total 420 / 420 2710 / 2710
Balance 420 / 420 2710 / 2710
Intake:
Oral fluids 420 / 420 720 / 720
IV fluids (Total) 1760 / 1760
IV piggybacks 230 / 230
Other:
Number of approximated MODERATE 2 2
amounts of urine
Vital Signs
Temp Pulse Resp BP Pulse Ox
98.3 F 64 17 154/87 96
10/04/23 07:00 10/04/23 07:00 10/04/23 07:00 10/04/23 07:00 10/04/23 07:00
Lab Results
10/04/23 08:19
10/04/23 08:19
Calcium 8.8 mg/dl (8.4-10.2) 10/04/23 08:19
Total Bilirubin 1.7 mg/dl (0.2-1.3) H 10/04/23 08:19
AST 27 U/L (17-59) 10/04/23 08:19
ALT 26 U/L (0-50) 10/04/23 08:19
Alkaline Phosphatase 47 U/L (38-126) 10/04/23 08:19
Total Protein 5.9 g/dl (6.3-8.2) L 10/04/23 08:19
Albumin 3.6 g/dl (3.5-5.0) 10/04/23 08:19
Physical Exam
-
NAD
ABD soft, mildly tender RUQ, ND
[2023-10-04 11:54] LABS: Glucose - Point of Care 98 mg/dl (70-99)
[2023-10-04] MEDS: ZOSYN IV ×2 (13:47→14:29)
--- NOTE | 2023-10-04 13:51 | PTCARENOTE ---
Patient taken to OR earlier than anticipated while primary RN was off floor for lunch. RN came back from lunch and called OR to give report and tubed down zosyn.
--- NOTE | 2023-10-04 14:05 | W.SUR.PREOP ---
Pre-Operative Surgical Note
-
I have examined this patient prior to the performance of the scheduled procedure.
The patient's condition is unchanged from the time of the current History and
Physical and the patient is able to undergo the scheduled procedure.
[2023-10-04 14:07] LABS: Glucose - Point of Care 81 mg/dl (70-99)
--- NOTE | 2023-10-04 14:14 | W.PN.HOSP.TC ---
Today's Communication/Plan
-
cont Zosyn
for OR
Assessment / Plan
Assessment / Plan
72yo M with anxiety, HLD, DM, VTE on ELiquis HTN, IBS and prior Sx and ileostomy reversal came with abdominal pain found 1.2 impacted gallstone in gall bladder neck
A/P:
#Choledocholitiasis with biliary colic
Zosyn
GenSx: for colecystectomy with cholangiogram
Advance diet as tolerated and pain mgmt
#Anxiety d/o
#Depression D/O
#PTSD
#OCD
cont home meds
Pscyhiatry: increased Xanax
#HX of VTE
Heparin drip for periOP
restart when Ok with GenSx
#EssentiaL HTN
#Allergic rhynitis
cont nhome meds
#DM type 2 with neuropathy
Accuchecks, Insulin SS, hold Metformin, DM diet
DVT ppx hep drip
Full code
I have spent at least 37min reviewing chart, test results and providing direct patient care
Anticipated Discharge: > 48 hours
Subjective/Interval History
-
Date of Service: October 04, 2023
Objective Data
-
Labs:
Laboratory Results
10/04/23
08:19
WBC 4.6 L
Hgb 11.3 L
Hct 32.5 L
Plt Count 207
APTT 26.7
Sodium 137
Potassium 4.4
Chloride 107
Carbon Dioxide 22
BUN 12
Creatinine 1.1
Glucose 125 H
Calcium 8.8
Total Bilirubin 1.7 H
AST 27
ALT 26
Alkaline Phosphatase 47
Vital Signs:
Vital Signs
Temp Pulse Resp BP Pulse Ox
98.3 F 64 17 154/87 96
10/04/23 07:00 10/04/23 07:00 10/04/23 07:00 10/04/23 07:00 10/04/23 07:00
I&O
10/03/23 10/04/23 10/05/23
06:59 06:59 06:59
Intake Total 420 / 420 2710 / 2710
Balance 420 / 420 2710 / 2710
Review of Systems
-
History Source: Patient
All other systems: Reviewed and negative
Physical Exam
-
General: Well Developed and Well Nourished
HEENT: Normocephalic
Respiratory: Clear to Auscultation; Negative Wheezes, Rales or Rhonchi
Cardiac: Regular Rhythm
GI: Soft, Nondistended and Tender
Musculoskeletal: No Clubbing, No Cyanosis and No Edema
Skin: Warm
Neuro: Awake, Alert, Oriented and AO x 3
Psych: Calm
--- NOTE | 2023-10-04 15:26 | W.IMMPOSTOP ---
Surgical Immed Post Op Note
-
Primary Surgeon: Ck Moses MD
Assisting Surgeon: None
Pre-op Diagnosis: Acute cholecystitis
Post-op Diagnosis: Same
Procedure Performed: Laparoscopic cholecystectomy with cholangiogram
Anesthesia Type: General
Specimen / Cultures: Gallbladder and contents
Estimated Blood Loss: 3 cc
Complications: None
Operative Findings: Inflamed and distended gallbladder. Critical view of safety obtained prior to cholangiogram which demonstrated no distal filling defects and otherwise normal biliary anatomy.
POST OP PLAN:
Imaging: None
Labs: Routine AM
Diet: Advance to Regular as tolerated
Analgesia: Tylenol 650mg q6 Chris, Bianca 5mg q6 PRN, Dilaudid 0.5mg q2h PRN
Neuro/vascular checks: q4h
AC/AP: Hold Therapeutic AC, Ok to restart heparin drip tomorrow morning. Anticipate transition to Xarelto on 10/06/2023, If hemoglobin remained stable.
Activity: Ad Jessica
Wound/Incisions/Drains: Routine
Abx: Continue while admitted
Dispo: RNF, anticipate discharge home 10/06/2023
--- NOTE | 2023-10-04 15:29 | OR.RPT ---
Operative Report
Operative Report
Patient Name: Zoran Story
: 1950
Date of Operation: 10/04/2023
Preoperative Diagnosis: Acute cholecystitis
Postoperative Diagnosis: Same
Procedure(s):
Laparoscopic Cholecystectomy with Cholangiogram
Surgeon(s):
Dr. Moses
Railway Engineer(s):
ELZBIETA Dixon
Anesthesia: General
Estimated Blood Loss: 3 cc
Urine Output: None
Drains/Lines/Implants: None
Specimens:
1. Gallbladder and contents
HPI/Surgical Indications:
This is a 72-year-old diabetic male, with a history of colon surgery and diverting ileostomy now reversed, and mesh at his reversal site, on Xarelto for clotting disorder, with recurrent right upper quadrant abdominal pain. Ultrasound imaging
demonstrated a stone impacted in the neck of the gallbladder. Exam, labs and imaging are consistent with acute cholecystitis. Risks/Benefits/Alternatives were discussed at length, and after transitioning the patient from Xarelto to a heparin drip
the patient agreed to proceed with surgery.
Findings:
The patient was noted to have gallbladder inflammation with overlying omental adhesions and edema. A Critical View of Safety was obtained. A cholangiogram showed no filling defects in the biliary system with the Left, Right Anterior, Right posterior
hepatic ducts, CHD, cystic duct and CBD all identified. There was brisk flow of dye into the duodenum.
Procedure Description:
The patient was brought to the Operating Room and placed in the supine position with one arm tucked. Following uneventful induction of general endotracheal anesthesia, an orogastric tube was placed. The abdomen was prepped and draped in the usual
sterile fashion. A timeout was performed confirming the procedure, consent, and that IV antibiotics were infused and sequential compression devices were confirmed to be on. The abdomen was entered using a left subcostal Veress technique, which
required a single pass, followed by a right upper quadrant 5 mm Optiview trocar. Pneumoperitoneum to 15 mmHg pressure was obtained without difficulty and we confirmed that no injury had occurred during our entry. The patient was positioned in
reverse Trendelenberg and rotated with the right side up slightly. Two 5mm trocars were then placed along the right subcostal margin., Followed by a 12 mm port in the epigastrium. The gallbladder was distended but we were able to place a locking
grasping forceps was placed on the fundus of the gallbladder where it was then retracted cephalad and to the right. There was some periduodenal adhesions to the infundibulum of the gallbladder which was lysed with electrocautery. Using appropriate
grasping instruments, the peritoneum overlying the triangle of Calot was incised and extended superiorly on both the anterior and posterior gallbladder velasquez. The infundibulum was dissected off the cystic plate. The cystic triangle was dissected
until a critical view of safety was achieved. The cystic artery was medialized, dissected and controlled with 2 proximal clips and 1 distal. The cystic duct/gallbladder junction in turn was identified, dissected circumferentially and a clip was
placed. A ductotomy was made and a cholangiocatheter on an Paez clamp was inserted into the cystic duct. A C-arm was draped and brought into the field. An intra-operative cholangiogram was performed and was noted to have:
No filling defects in the biliary tree
No significant biliary dilation
Brisk flow of contrast into the duodenum
Normal biliary anatomy
The catheter was then removed and the cystic duct was controlled with two clips. After ensuring both the artery and duct were divided, the gallbladder was freed from the liver using electrocautery. There was no spillage of bile or stones. The
gallbladder bed was inspected and excellent hemostasis was obtained. The gallbladder was extracted through the 12 mm trocar site using an endocatch bag. The abdomen was again irrigated and excellent hemostasis was assured. All remaining trocars
were then removed and the pneumoperitoneum was evacuated. The 12 mm trocar site was closed using 0 PDS suture. All trocar sites were closed at the skin level using 4-0 Monocryl followed by Dermabond. Overall, the patient tolerated the procedure
well and was taken to the Recovery Room postoperatively in stable condition.
I was the attending physician and performed the procedure with assistance from the BUHR DRESSER above. I was present for all portions of the case
Ck Moses MD
[2023-10-04 15:38] LABS: Glucose - Point of Care 133 mg/dl (70-99)
[2023-10-04 16:48] LABS: Glucose - Point of Care 159 mg/dl (70-99)
[2023-10-04] MEDS: MIRALAX 17 GRAMS PO (20:16)
[2023-10-04 21:06] LABS: Glucose - Point of Care 263 mg/dl (70-99)
[2023-10-04] MEDS: ROXICODONE 5 MG PO (21:19)
[2023-10-04] MEDS: TYLENOL PO (23:31)
[2023-10-04] MEDS: DILAUDID 0.5 MG IV (23:58)
[2023-10-05] MEDS: ATARAX 25 MG PO (01:33)
[2023-10-05 03:23] VITALS: BP 149/89
[2023-10-05] MEDS: ROXICODONE 5 MG PO (05:35)
[2023-10-05] MEDS: ZOSYN 50 IV ×3 (05:36→18:07)
[2023-10-05 06:00] VITALS: BMI 25.6
--- NOTE | 2023-10-05 06:37 | PTCARENOTE ---
WIRE MILL OPERATOR notified that MD note states to restart hep gtt. No order from MD to restart. WIRE MILL OPERATOR stated to pass onto dayshift RN. Plan of care ongoing.
[2023-10-05 07:00] VITALS: BP 160/88
[2023-10-05 07:04] LABS: % Basophils 0.1 % (0-2); % Immature Granulocytes 0.3 % (0-0.5); % Monocytes 9.5 % (1.7-9.3); % Neutrophils 80.1 % (42.2-75.2); ALT (SGPT) 163 U/L (0-50); AST (SGOT) 202 U/L (17-59); Absolute Lymphocytes 0.9 10^3/uL (1.2-3.4); Absolute Monocytes 0.8 10^3/uL (0.1-0.6); Absolute Neutrophils 7.1 10^3/uL (1.4-6.5); Albumin 4.1 g/dl (3.5-5.0); Alkaline Phosphatase 88 U/L (38-126); Blood Urea Nitrogen 10 mg/dl (9-20); Calcium 9.1 mg/dl (8.4-10.2); Carbon Dioxide 25 mmol/L (22-30); Chloride 103 mmol/L (98-107); Estimated Creatinine Clearance 70 ml/min; Glucose 176 mg/dl (70-99); Hematocrit 35.7 % (39.0-52.0); Hemoglobin 12.3 g/dL (13.0-18.0); Mean Corp Hgb Conc. 34.5 g/dL (33.0-37.0); Mean Corpuscular Hgb 30.4 pg (27.0-31.0); Mean Corpuscular Volume 88.4 fL (80.0-94.0); Mean Platelet Volume 9.5 fL (7.4-10.4); Nucleated Red Blood Cells % 0 % (-); Platelet Count 221 10^3/uL (130-400); Potassium 4.4 mmol/L (3.5-5.1); Red Blood Cell Count 4.04 10^6/uL (4.70-6.10); Red Cell Dist. Width 13.3 % (11.5-14.5); Sodium 135 mmol/L (135-145); Total Bilirubin 1.5 mg/dl (0.2-1.3); Total Protein 6.4 g/dl (6.3-8.2); White Blood Cell Count 8.8 10^3/uL (4.8-10.8); eGFR > 60.00
[2023-10-05 07:57] LABS: Glucose - Point of Care 130 mg/dl (70-99)
[2023-10-05] MEDS: NOVOLOG FLEXPEN-LOW RESISTANCE SC (08:35)
[2023-10-05] MEDS: ZYRTEC 10 MG PO (08:47)
[2023-10-05] MEDS: BUSPAR 10 MG PO ×2 (08:47→20:49)
[2023-10-05] MEDS: PROTONIX 40 MG PO (08:48)
[2023-10-05] MEDS: EFFEXOR XR 37.5 MG PO (08:48)
[2023-10-05] MEDS: EFFEXOR XR 150 MG PO (08:48)
[2023-10-05] MEDS: LIPITOR 40 MG PO (08:48)
[2023-10-05] MEDS: XANAX 0.5 MG PO ×2 (09:55→15:45)
[2023-10-05 10:57] LABS: INR 1.09; PT 13.9 Sec (11.4-14.6)
[2023-10-05 11:59] LABS: Glucose - Point of Care 202 mg/dl (70-99)
[2023-10-05] MEDS: NOVOLOG FLEXPEN-LOW RESISTANCE 2 UNITS SC (13:22)
[2023-10-05] MEDS: DIOVAN 40 MG PO (13:23)
--- NOTE | 2023-10-05 14:08 | W.PN.GS2 ---
Today's Communication / Plan
-
Heparin drip.
Begin dispo planning.
Assessment / Plan
-
72 yo diabetic male on Xarelto for prothrombin clotting disorder with prior CVA, PE and DVT (LD 09/30) with recurrent RUQ pain with US imaging demonstrating a stone impacted at the gallbladder neck. Postoperative day 1 from a laparoscopic
cholecystectomy and cholangiogram. Doing well, expected postoperative course.
Okay to resume heparin drip today.
Will plan for resuming Xarelto tomorrow morning.
If his hemoglobin is stable okay to DC the tomorrow 10/06/2023.
Continue Zosyn while admitted, no need for antibiotics on discharge.
All questions answered, patient agreeable to plan of care above.
Time Spent
Total Time Spent with Patient (in minutes): 20
Subjective Data
-
Date of Service: October 05, 2023
Interval Events:
No acute events overnight. Did not sleep well. Pain Controlled. Denies Nausea/Vomiting, +bowel function. Tolerating diet.
Objective Data
-
Intake and Output
10/04/23 10/05/23 10/06/23
06:59 06:59 06:59
Intake Total 2710 / 2710 1635 / 1635
Balance 2710 / 2710 1635 / 1635
Intake:
Oral fluids 720 / 720 1000 / 1000
IV fluids (Total) 1760 / 1760 635 / 635
normosol 75 / 75
IV piggybacks 230 / 230
Other:
Number of approximated MODERATE 2 2
amounts of urine
Vital Signs
Temp Pulse Resp BP Pulse Ox
97.5 F 63 16 156/78 99
10/05/23 07:00 10/05/23 13:23 10/05/23 07:00 10/05/23 13:23 10/05/23 07:00
Lab Results
10/05/23 05:49
10/05/23 05:49
Calcium 9.1 mg/dl (8.4-10.2) 10/05/23 05:49
Total Bilirubin 1.5 mg/dl (0.2-1.3) H 10/05/23 05:49
AST 202 U/L (17-59) H 10/05/23 05:49
ALT 163 U/L (0-50) H 10/05/23 05:49
Alkaline Phosphatase 88 U/L (38-126) 10/05/23 05:49
Total Protein 6.4 g/dl (6.3-8.2) 10/05/23 05:49
Albumin 4.1 g/dl (3.5-5.0) 10/05/23 05:49
Physical Exam
-
GENERAL/NEURO: Awake, Alert, no distress
CHEST: Unlabored breathing on RA
ABDOMEN: Soft, Non-Tender, Non-Distended, incisions clean dry and intact.
--- NOTE | 2023-10-05 14:36 | W.PN.UPDATE ---
Update Note
Progress Note Update
Pt seen, chart reviewed. Pt continues to be anxious, has several medical concerns and states his questions are not being adequately addressed. Pt has history of stroke, has genetic clotting disorder; has history of chronic complication from a
bowel surgery that went undiagnosed for years, leading to ongoing opioid Rx for pain. As a result, pt worries about constipation, is concerned about getting his regular medication. Reviewed pt's outpatient psych med regimen, including prn Xanax,
which has been increased while here at , after confirmed with pt's outpatient psychiatrist- has been seeing for about 8 years. Pt alert, oriented, calm, cooperative, conversant, sitting up in chair.
Imp: Generalized anxiety disorder, depression, OCD and PTSD by history; increased situational anxiety
Rec: continue increased prn Xanax 0.5mg up to 4 times a day while in the hospital; continue existing Effexor XR and Buspar.
F/u with outpatient psychiatrist Dr. Slaughter after discharge
--- NOTE | 2023-10-05 14:46 | W.PN.HOSP.TC ---
Today's Communication/Plan
-
Heparin drip
Reatart Valsartan
COnt Miralax
Assessment / Plan
Assessment / Plan
72yo M with anxiety, HLD, DM, VTE 2/2 on ELiquis HTN, IBS and prior Sx and ileostomy reversal came with abdominal pain found 1.2 impacted gallstone in gall bladder neck, had cholecystectomy on 10/04/23 that showed inflamed gall bladder and
cholangiogran that did not show residual stone in gall ducts. Restarted Heparin on 10/05/23 and if no worsening anemia or clinical signs of bleeding - might be able to switch to Xarelto in 24h and d/c
A/P:
#Choledocholithiasis with biliary colic and cholecystitis
Zosyn switch to Augmentin upon d/c for 5 postOP days total
GenSx: cholecystectomy with cholangiogram done on 10/04/23
Advance diet as tolerated and pain mgmt
#Anxiety d/o
#Depression D/O
#PTSD
#OCD
cont home meds
Pscyhiatry: increased Xanax
#HX of VTE
Heparin drip for periOP
restart when Ok with GenSx
#EssentiaL HTN
#Allergic rhynitis
cont nhome meds
#DM type 2 with neuropathy
Accuchecks, Insulin SS, hold Metformin, DM diet
DVT ppx hep drip
Full code
I have spent at least 37min reviewing chart, test results and providing direct patient care
Anticipated Discharge: Within 24 hours
Subjective/Interval History
-
Date of Service: October 05, 2023
Objective Data
-
Labs:
Laboratory Results
10/05/23 10/05/23 10/05/23
05:49 10:34 18:20
WBC 8.8
Hgb 12.3 L
Hct 35.7 L
Plt Count 221
PT 13.9
INR 1.09
APTT Pending
Sodium 135
Potassium 4.4
Chloride 103
Carbon Dioxide 25
BUN 10
Creatinine 1.0
Glucose 176 H
Calcium 9.1
Total Bilirubin 1.5 H
AST 202 H
ALT 163 H
Alkaline Phosphatase 88
Vital Signs:
Vital Signs
Temp Pulse Resp BP Pulse Ox
97.5 F 63 16 156/78 99
10/05/23 07:00 10/05/23 13:23 10/05/23 07:00 10/05/23 13:23 10/05/23 07:00
I&O
10/04/23 10/05/23 10/06/23
06:59 06:59 06:59
Intake Total 2710 / 2710 1635 / 1635
Balance 2710 / 2710 1635 / 1635
Review of Systems
-
History Source: Patient
All other systems: Reviewed and negative
Physical Exam
-
General: No Apparent Distress
HEENT: Normocephalic and Atraumatic
Respiratory: Clear to Auscultation; Negative Wheezes or Rales
Cardiac: Regular Rhythm
GI: Soft, Nontender and Distended (postOP gas)
Musculoskeletal: No Clubbing, No Cyanosis and No Edema
Skin: Warm
Neuro: Awake, Alert, Oriented and AO x 3
Psych: Anxious
[2023-10-05 15:00] VITALS: BP 171/92
[2023-10-05] MEDS: MIRALAX 17 GRAMS PO (15:41)
[2023-10-05] MEDS: MYLICON 160 MG PO ×2 (15:55→20:48)
--- NOTE | 2023-10-05 16:11 | CM ---
Case management following for discharge planning
Chart reviewed
Post op day #1 - s/p lap naomie with cholangiogram
To transition to PO abx, hep infusion
to transport home
Plan - anticipate home with - no needs
[2023-10-05 16:27] LABS: Glucose - Point of Care 164 mg/dl (70-99)
[2023-10-05] MEDS: NOVOLOG FLEXPEN-LOW RESISTANCE 1 UNITS SC (18:08)
--- NOTE | 2023-10-05 20:10 | PTCARENOTE ---
Pt expressing frustration to IV team at bedside about stay here at hospital and overall dissatisfaction. Pt stated 'he would like to report some people'. This RN at bedside. Nursing air conditioning supervisor made aware.
[2023-10-05 20:19] VITALS: BP 155/87
--- NOTE | 2023-10-05 20:22 | PTCARENOTE ---
PTT ordered for 18:20 never obtained on dayshift. Talent Acquisition Coordinator unable to obtain. Talent Acquisition Coordinator informed this RN they attempted to tiger text the ammunition assembly ii laborer that they reached out to vascular to have them obtain lab, this RN never notified.
Talent Acquisition Coordinator informed this RN they were not able to locate dayshift RN on floor. Lab obtained by IV team. STEAK TENDERIZER MACHINE and nursing supervisor blast furnace auxiliaries made aware.
[2023-10-05 20:42] LABS: APTT 79.4 Sec (23.4-35.0)
[2023-10-05] MEDS: SENOKOT 17.2 MG PO (22:14)
[2023-10-05] MEDS: XANAX 0.75 MG PO (22:15)
--- NOTE | 2023-10-05 22:15 | PTCARENOTE ---
Pt requested 2 Senokot pills and 0.75 mg of alprazolam. CORRECTIONAL SUPPLY SUPERVISOR made aware, new orders provided, see MAR.
[2023-10-05 23:12] VITALS: BP 149/73
[2023-10-06] MEDS: ZOSYN 50 IV ×3 (00:09→12:15)
[2023-10-06 00:23] LABS: Glucose - Point of Care 175 mg/dl (70-99)
[2023-10-06 03:08] LABS: % Basophils 0.6 % (0-2); % Eosinophils 2.7 % (0-6); % Immature Granulocytes 0.6 % (0-0.5); % Lymphocytes 31.6 % (20.5-51.1); % Monocytes 11.2 % (1.7-9.3); % Neutrophils 53.3 % (42.2-75.2); Absolute Basophils 0.1 10^3/uL (0-0.2); Absolute Eosinophils 0.2 10^3/uL (0-0.7); Absolute Immature Granulocytes 0.1 10^3/uL (0-0.05); Absolute Lymphocytes 2.9 10^3/uL (1.2-3.4); Absolute Neutrophils 4.8 10^3/uL (1.4-6.5); Hematocrit 32.7 % (39.0-52.0); Hemoglobin 11.6 g/dL (13.0-18.0); Mean Corp Hgb Conc. 35.5 g/dL (33.0-37.0); Mean Corpuscular Hgb 29.7 pg (27.0-31.0); Mean Corpuscular Volume 83.8 fL (80.0-94.0); Mean Platelet Volume 9.1 fL (7.4-10.4); Nucleated Red Blood Cells % 0 % (-); Platelet Count 189 10^3/uL (130-400); Red Cell Dist. Width 13.8 % (11.5-14.5)
[2023-10-06 03:25] LABS: APTT 129.1 Sec (23.4-35.0)
--- NOTE | 2023-10-06 04:05 | DOWNTIME ---
There was a [employer] Downtime on 10/06/2023 from 0100 to 10/06/2023 at 0252. Downtime documentation of patient's care, including medication administrations, has been reconciled in the electronic record per guidelines. Refer to the
patient's paper chart under the miscellaneous tab to see printed paper medication records and downtime forms.
[2023-10-06] MEDS: HEPARIN 25000 UNITS/250 ML IV (05:30)
[2023-10-06 06:14] VITALS: BMI 25.7
[2023-10-06 07:00] VITALS: BP 147/85
[2023-10-06 08:12] LABS: Glucose - Point of Care 118 mg/dl (70-99)
[2023-10-06] MEDS: NOVOLOG FLEXPEN-LOW RESISTANCE SC (08:19)
[2023-10-06] MEDS: BUSPAR 10 MG PO (08:20)
[2023-10-06] MEDS: EFFEXOR XR 37.5 MG PO (08:21)
[2023-10-06] MEDS: EFFEXOR XR 150 MG PO (08:21)
[2023-10-06] MEDS: LIPITOR 40 MG PO (08:21)
[2023-10-06] MEDS: PROTONIX 40 MG PO (08:21)
[2023-10-06] MEDS: DIOVAN 40 MG PO (08:35)
[2023-10-06 09:51] LABS: APTT 111.1 Sec (23.4-35.0)
[2023-10-06] MEDS: XANAX 0.5 MG PO ×2 (10:03→12:19)
--- NOTE | 2023-10-06 10:39 | W.PN.GS2 ---
Today's Communication / Plan
-
DC home
Assessment / Plan
-
72 yo diabetic male on Xarelto for prothrombin clotting disorder with prior CVA, PE and DVT (LD 09/30) with recurrent RUQ pain with US imaging demonstrating a stone impacted at the gallbladder neck. Postoperative day 2 from a laparoscopic
cholecystectomy and cholangiogram. Doing well, expected postoperative course.
Okay to resume xarelto today.
Continue Zosyn while admitted, no need for antibiotics on discharge.
OK for DC home from surg standpoint, pls call with ?s
All questions answered, patient agreeable to plan of care above.
Subjective Data
-
Date of Service: October 06, 2023
AFVSS, pain controlled, michelle PO, ambulating
Objective Data
-
Intake and Output
10/05/23 10/06/23 10/07/23
06:59 06:59 06:59
Intake Total 1635 / 1635 460 / 460
Balance 1635 / 1635 460 / 460
Intake:
Oral fluids 1000 / 1000 360 / 360
IV fluids (Total) 635 / 635
normosol 75 / 75
IV piggybacks 100 / 100
Other:
Number of approximated MODERATE 2 3
amounts of urine
Vital Signs
Temp Pulse Resp BP Pulse Ox
97.8 F 66 17 147/85 96
10/06/23 07:00 10/06/23 08:35 10/06/23 07:00 10/06/23 08:35 10/06/23 07:00
Lab Results
10/06/23 03:01
10/05/23 05:49
Calcium 9.1 mg/dl (8.4-10.2) 10/05/23 05:49
Total Bilirubin 1.5 mg/dl (0.2-1.3) H 10/05/23 05:49
AST 202 U/L (17-59) H 10/05/23 05:49
ALT 163 U/L (0-50) H 10/05/23 05:49
Alkaline Phosphatase 88 U/L (38-126) 10/05/23 05:49
Total Protein 6.4 g/dl (6.3-8.2) 10/05/23 05:49
Albumin 4.1 g/dl (3.5-5.0) 10/05/23 05:49
Physical Exam
-
Gen: NAD
Abd: soft, approp ttp, incisions cdi with glue
--- NOTE | 2023-10-06 11:13 | W.PN.HOSP.TC ---
Today's Communication/Plan
-
D/C after Xarelto dose
Assessment / Plan
Assessment / Plan
72yo M with anxiety, HLD, DM, VTE, prothrombin 51785T mutation with Hx of CVA 2/2 on ELiquis HTN, IBS and prior Sx and ileostomy reversal came with abdominal pain found 1.2 impacted gallstone in gall bladder neck, had cholecystectomy on 10/04/23 that
showed inflamed gall bladder and cholangiogran that did not show residual stone in gall ducts. Restarted Heparin on 10/05/23 and no worsening anemia or clinical signs of bleeding observed. Hgb stable. Patient was switched back to Xarelto at 2pm as
per patint request. Emphasized need to take this med with meal. Medically stable for d/c
A/P:
#Choledocholithiasis with biliary colic and cholecystitis
Zosyn switch to Augmentin upon d/c for 5 postOP days total
GenSx: cholecystectomy with cholangiogram done on 10/04/23
Advance diet as tolerated and pain mgmt
#Anxiety d/o
#Depression D/O
#PTSD
#OCD
cont home meds
Pscyhiatry: increased Xanax
#TE, prothrombin 23551P mutation with Hx of CVA
Heparin drip for periOP
restart Xarelto
#EssentiaL HTN
#Allergic rhynitis
cont nhome meds
#DM type 2 with neuropathy
Accuchecks, Insulin SS, hold Metformin, DM diet
DVT ppx hep drip
Full code
I have spent at least 37min reviewing chart, test results and providing direct patient care
Anticipated Discharge: Today
Subjective/Interval History
-
Date of Service: October 06, 2023
Objective Data
-
Labs:
Laboratory Results
10/06/23 10/06/23 10/06/23
03:01 09:21 16:00
WBC 9.0
Hgb 11.6 L
Hct 32.7 L
Plt Count 189
APTT 129.1 H 111.1 H Pending
Vital Signs:
Vital Signs
Temp Pulse Resp BP Pulse Ox
97.8 F 66 17 147/85 96
10/06/23 07:00 10/06/23 08:35 10/06/23 07:00 10/06/23 08:35 10/06/23 07:00
I&O
10/05/23 10/06/23 10/07/23
06:59 06:59 06:59
Intake Total 1635 / 1635 460 / 460
Balance 1635 / 1635 460 / 460
Review of Systems
-
History Source: Patient
All other systems: Reviewed and negative
Physical Exam
-
General: Well Developed, Well Nourished and No Apparent Distress
Respiratory: Clear to Auscultation
Cardiac: Regular Rhythm
GI: Soft, Nontender and Nondistended
Musculoskeletal: No Clubbing, No Cyanosis and No Edema
Psych: Calm
--- NOTE | 2023-10-06 11:21 | W.DCSUMMARY ---
Discharge Summary
Discharge Data
Date of Admission: 10/02/23
Date of Discharge: 10/06/23
-
Pending Results: No
Hospital Course
72yo M with anxiety, HLD, DM, VTE, prothrombin 68844I mutation with Hx of CVA 2/2 on ELiquis HTN, IBS and prior Sx and ileostomy reversal came with abdominal pain found 1.2 impacted gallstone in gall bladder neck, had cholecystectomy on 10/04/23 that
showed inflamed gall bladder and cholangiogran that did not show residual stone in gall ducts. Restarted Heparin on 10/05/23 and no worsening anemia or clinical signs of bleeding observed. Hgb stable. Patient was switched back to Xarelto at 2pm as
per patint request. Emphasized need to take this med with meal. As per Sx - can stop Abx upon d/c. Medically stable for d/c
I have spent at least 37min discharging the patient
Patient was managed for:
#Choledocholithiasis with biliary colic and cholecystitis
#Anxiety d/o
#Depression D/O
#PTSD
#OCD
#TE, prothrombin 14227C mutation with Hx of CVA
#EssentiaL HTN
#Allergic rhynitis
#DM type 2 with neuropathy
#Hiatal hernia asymptomatic
#L kidney simple cyst
Discharge Plan
-
Patient Disposition: Home (Routine Discharge)
Discharge Diagnosis/Procedures: Acute calculus cholecystitis. Laparoscopic cholecystectomy with cholangiogram.
Condition: Good
Diet: Diabetic, Carb Controlled
Activity: No strenuous activity
Driving Restrictions: As prior to admission
Bathing Restrictions: OK to Shower
Activity Restrictions/Additional Instructions:
Instructions following Laparoscopic Cholecystectomy
Please call [phone] if you have any questions or concerns after your surgery.
Wound Care:
Your incisions are covered with skin glue which will come off on its own in 5-10 days.
It is ok to shower the day after your surgery. Do not scrub the incisions, let soap and water wash over them and pat dry.
� Bruising around your incisions is normal.
� Using ice packs will help minimize this swelling.
� No swimming or soaking incisions for 1 week.
� Your stitches will dissolve and do not need to be removed.
Urinary retention:
If you are unable to urinate 6-8 hours after your surgery, please call [phone] to discuss further management.
Activity:
No heavy lifting more than 15 pounds for the next 3 weeks, then you may gradually lift heavier objects as tolerated by discomfort. Otherwise activity as tolerated by your comfort level.
Pain Management:
Use Tylenol, ibuprofen and ice packs to treat your pain.
� You may take 650 milligrams of Tylenol (Max 3 grams per day) every 6 hours, and 600 mg of ibuprofen also every 6 hours. (you can alternate them every 3 hours)
� You may use an ice pack to your incision as needed.
� If you still have pain not controlled by these measures, take your prescription pain medication as prescribed.
Medications:
You may resume your home medications.
You can restart your Xarelto on 10/06/2023 at the usual dose and time.
Bowel Medications:
Prescription pain medication can make you constipated. If you take this medication, also take colace 100 mg twice daily (this is over the counter). If this is not sufficient, you may take Miralax (polyethylene glycol) to help move your bowels.
Diet:
After your procedure, there are no dietary restrictions. However, you may notice some loose stools with fatty meals for up to 4 weeks after surgery. If this is the case, please adjust to a low fat diet as needed.
Driving restrictions:
No driving if you are taking prescription pain medication or if you think your normal reaction time and attentiveness has been slowed by your surgery.
Things to Look out for:
Worsening Abdominal pain, fever, jaundice, redness or drainage from incision
Call Doctor for:
Please call if you notice worsening redness or drainage from incision(s) lasting longer than 5 days after your surgery, any foul-smelling drainage from the incision, pain not controlled by pain medications, persistent nausea and vomiting, or for any
fevers greater than 101.3 F. The number for questions/concerns is [phone]
Follow-up:
A follow-up appointment will be scheduled with your surgeon in 3-4 weeks. Please call prior to your appointment if you have any questions or concerns. [phone]
Referrals:
Ck Moses MD [Active] -
PRIVATE,PHYSICIAN [Family Provider] -
Prescriptions:
New
alprazolam 0.5 mg Tablet
0.5 mg PO QID PRN (Reason: anxiety) Qty: 0 0RF
Chloraseptic Sore Throat 6-10 mg Lozenge
1 magen PO Q2HPRN PRN (Reason: sore throat/cough) Qty: 30 0RF
Continued
venlafaxine 150 mg Capsule,Extended Release 24hr
150 mg PO DAILY
Rx Instructions:
take with 37.5mg
hydroxyzine HCl 25 mg Tablet
25 mg PO DAILYPRN PRN (Reason: allergies)
Linzess 145 mcg Capsule
145 mcg PO DAILYPRN PRN (Reason: constipation)
Linzess 72 mcg Capsule
72 mcg PO DAILYPRN PRN (Reason: constipation)
atorvastatin 40 mg Tablet
40 mg PO DAILY
pantoprazole 40 mg Tablet,Delayed Release (Dr/Ec)
40 mg PO DAILY
buspirone 10 mg Tablet
10 mg PO BID
valsartan 40 mg Tablet
40 mg PO DAILY
Xarelto 20 mg Tablet
20 mg PO DAILY
metformin 1,000 mg Tablet
1,000 mg PO BID
simethicone [Gas-X Extra Strength] 125 mg Capsule
125 mg PO BIDPRN PRN (Reason: gas)
IBgard 90 mg Capsule,Delayed,Extend.Release
180 mg PO BID
venlafaxine 37.5 mg capsule,extended release 24hr
37.5 mg PO DAILY
Rx Instructions:
take with 150mg
Discontinued
alprazolam 0.5 mg Tablet
0.5 mg PO TIDPRN PRN (Reason: anxiety)
Discharge Orders:
Discharge Patient (As Directed); Ordered 10/06/23
Ordered By: You Henderson
Discharge Date and Time
Print Language: DOMINICAN
[2023-10-06 11:39] LABS: Glucose - Point of Care 204 mg/dl (70-99)
--- NOTE | 2023-10-06 12:13 | W.PN.UPDATE ---
Update Note
Progress Note Update
patient seen chart reviewed. patient expressed major discontent with his rx here . he does acknowledge he is physically better but is very unhappy his xanax was not continued as ordered on the bottles he obtains from his private psychiatrist. he
feels staff dragged their feet to call his out -pt psychiatrist (it was over weekend) and although the order for his xanax was increased to qid he wanted to have the option of 'one and a half' as his out pt dr allows him to do. i tried to explain to
him that we cannot automatically continue orders as written by out patient providers and why that is but he was not mollified. he feels our system needs redoing. he is leaving this afternoon and will follow up with his out patient psychiatrist.
psych will sign off.
--- NOTE | 2023-10-06 12:42 | CM ---
Pt for discharge today
Pt reports he has a ride home with his
Discussed IMM
Plan - anticipate home with no needs
[2023-10-06] MEDS: NOVOLOG FLEXPEN-LOW RESISTANCE 2 UNITS SC (12:59)
[2023-10-06] MEDS: XARELTO 20 MG PO (13:04)
--- NOTE | 2023-10-06 13:49 | PTCARENOTE ---
pt transitioned to Xarelto 20mg for discharge, Heparin stopped at same time, Per
[2023-10-06 13:50] VITALS: BP 143/83
== END 2023-10-06 14:35 | disposition home or self-care (01) | DRG 418 ==
LOC: 3 WEST ACU 02:26
PROVIDERS: Family Medicine; Radiology Diagnostic Radiology; Registered Nurse; Surgery; ADMITTING PHYSICIAN Internal Medicine; ATTENDING PHYSICIAN Internal Medicine; CONSULT PHYSICIAN Psychiatry & Neurology Psychiatry; EMERGENCY PHYSICIAN Student in an Organized Health Care Education/Training Program; OTHER PHYSICIAN Surgery
PROC: 0FT44ZZ Resection of Gallbladder, Percutaneous Endoscopic Approach (ICD-10-PCS; 2023-10-04)
PROC: BD19YZZ Fluoroscopy of Duodenum using Other Contrast (ICD-10-PCS; 2023-10-04)
PROC: BF101ZZ Fluoroscopy of Bile Ducts using Low Osmolar Contrast (ICD-10-PCS; 2023-10-04)
DX: K80.63 Calculus of gallbladder and bile duct with acute cholecystitis with obstruction (principal); D68.52 Prothrombin gene mutation; K82.8 Other specified diseases of gallbladder; K66.0 Peritoneal adhesions (postprocedural) (postinfection); R60.9 Edema, unspecified; I10 Essential (primary) hypertension; E78.00 Pure hypercholesterolemia, unspecified; K58.9 Irritable bowel syndrome, unspecified; F43.10 Post-traumatic stress disorder, unspecified; F42.9 Obsessive-compulsive disorder, unspecified; F41.1 Generalized anxiety disorder; J30.9 Allergic rhinitis, unspecified; K44.9 Diaphragmatic hernia without obstruction or gangrene; N28.1 Cyst of kidney, acquired; F32.A Depression, unspecified; E11.40 Type 2 diabetes mellitus with diabetic neuropathy, unspecified; Z86.73 Personal history of transient ischemic attack (TIA), and cerebral infarction without residual deficits; Z79.84 Long term (current) use of oral hypoglycemic drugs; Z79.01 Long term (current) use of anticoagulants; Z90.49 Acquired absence of other specified parts of digestive tract; Z85.048 Personal history of other malignant neoplasm of rectum, rectosigmoid junction, and anus; Z86.718 Personal history of other venous thrombosis and embolism; Z86.711 Personal history of pulmonary embolism
CPT/HCPCS: 88304; 74300; 76000; 80048; 80053; 82962; 83036; 83690; 85025; 85027; 85610; 85730; 86850; 86900; 86901; 99284; A4300